=== PATIENT | female | born 1975 | race Caucasian/White ===

== ENCOUNTER 2019-06-04 14:16 | Emergency (ER) | payer BC, OTHER ==
[2019-06-04] MEDS ORDERED: ONDANSETRON HCL INJ/PF 4 MG/2 ML SDV IV ONE (15:01)
--- NOTE | 2019-06-04 15:07 | ER Document Report ---
ED General - General Chief Complaint: Nausea/Vomiting Stated Complaint: NAUSEA/VOMITING Time Seen by Provider: 06/04/19 14:26 Primary Care Provider: SHANDA BAEZ FNP [Primary Care Provider] - Follow up as needed TRAVEL OUTSIDE OF THE [place] IN LAST 30 DAYS: No - HPI Notes: Chief complaint: Vomiting, diarrhea dehydration and weakness HPI: Generally healthy 43-year-old female seen in urgent care approximately 2 weeks ago with cough and respiratory symptoms and diagnosed with a walking pneumonia at that time. She was treated with Levaquin. Patient had a COVID test at that time which was reported as negative. Respiratory symptoms have improved although during the entire course of her illness she is remained fatigued and has had some vague dull headache and myalgias. Over the last 1 week she has developed recurrent episodes of vomiting with worsening weakness and has been extremely chilled intermittently although she says she is not measured an elevated temperature at home. She has been seen at least twice in urgent care and has been given IV fluids. Vomiting persists. She is now developed some watery stools. She has had 2 stools today and also vomited twice today. She is not able to eat or drink well. She is thirsty. She denies any bilious emesis, hematemesis or coffee-ground emesis. She denies any melena or hematochezia. Her primary care provider mentioned the possibility of antibiotic associated colitis but apparently has not done a C. difficile toxin assay for her. They did send specimens for helical back to [facility] yesterday but these r esults remain pending at this time. She complains of some "soreness" mid epigastric area. She has no localized right lower quadrant pain. Patient has had no direct exposure to COVID-19 virus that she is aware of. She does however note that her is a caddy packer. He was tested within the last 2 weeks and also had a reported negative result. Patient has not traveled outside the area. She denies any known contact with other individuals with similar gastrointestinal symptoms. Past surgical procedures for the patient have included hysterectomy, cholecystectomy and exploratory laparotomy with lysis of adhesions. She still has her appendix. - Related Data Allergies/Adverse Reactions: No Known Allergies Allergy (Verified 06/04/19 14:26) Past Medical History - General Information source: Patient, [facility] Records - Social History Smoking Status: Never Smoker Chew tobacco use (# tins/day): No Frequency of alcohol use: Rare Drug Abuse: None Lives with: Family Family History: Reviewed & Not Pertinent Patient has homicidal ideation: No - Past Medical History Cardiac Medical History: Reports: Other - History of PSVT and takes a beta- quincy regularly. Pulmonary Medical History: Reports: Other - Recent treatment for pneumonia as per HPI Neurological Medical History: Reports: Hx Migraine Endocrine Medical History: Denies: Hx Diabetes Mellitus Type 2 GI Medical History: Denies: Hx Ulcer Psychiatric Medical History: Reports: Hx Anxiety, Hx Depression Past Surgical History: Reports: Hx Abdominal Surgery, Hx Cholecystectomy, Hx Hysterectomy Review of Systems - Review of Systems Notes: Constitutional: As per HPI. HENT: Negative for sore throat. Eyes: Negative for visual changes. Cardiovascular: Negative for chest pain. Respiratory: Negative for shortness of breath. Gastrointestinal: As per HPI. Genitourinary: Negative for dysuria. Musculoskeletal: Negative for back pain. Skin: Negative for rash. Neurological: Negative for headaches, focal weakness or numbness. 10 point ROS negative except as marked above and in HPI. Physical Exam - Vital signs Vitals: Temp 97.8 F 06/04/19 14:19 - Notes Notes: Remote Exam Using Telemedicine System for risk mitigation related to COVID-19 pandemic GENERAL: Well-developed well-nourished appearing in no acute distress. SKIN: Decreased turgor. No rashes. HEAD: Normocephalic atraumatic. EYES: Eyes appear mildly sunken. PERRL. EOMI. Conjunctivae and sclerae clear. NOSE: CLEAR. MOUTH: Tacky oral mucosa. Good dentition. No stridor or edema. No drooling. NECK: Full ROM. No visible masses or thyromegaly. No JVD. BACK: Symmetrical. CHEST: Respirations unlabored. Expands symmetrical. ABDOMEN: Non-distended. Nontender. GENITALIA: Deferred. EXTREMITIES: No edema. NEUROLOGICAL: GCS 15. Alert and oriented x3. Normal gait. Fluent speech. Cranial nerves II through XII intact. Motor and cerebellar normal. PSYCHIATRIC: Appropriate affect. Course - Re-evaluation Re-evalutation: 06/04/19 15:10 My most immediate concern would be dehydration and possible antibiotic associated colitis. We will give the patient some IV normal saline and some Zofran. We will try to collect stool specimen for C. difficile toxin assay. We will recheck a CBC and comprehensive metabolic profile. We will also get an influenza screen for the patient. 06/04/19 20:40 Patient was clinically dehydrated and felt much better after she received 2 L normal saline IV. We also gave her some Zofran and some fentanyl IV and she showed great symptomatic improvement. Her C. difficile testing was negative. We did get a CT abdomen and pelvis with oral and IV contrast and she has some th ickening of the colon consistent with a nonspecific colitis. I think she is stable for outpatient management and she will be referred back to her PMD. Findings and recommendations have been discussed and fully understood by the patient. - Vital Signs Vital signs: Temp Pulse Resp BP Pulse Ox 97.9 F 86 14 136/74 H 100 06/04/19 14:24 06/04/19 14:24 06/04/19 14:24 06/04/19 14:24 06/04/19 14:24 - Laboratory Result Diagrams: 06/04/19 15:15 06/04/19 15:15 Laboratory results interpreted by me: 06/04/19 15:15 Chloride 112 H Carbon Dioxide 16 L Discharge - Discharge Clinical Impression: Colitis Condition: Stable Disposition: HOME, SELF-CARE Additional Instructions: Colitis, Nonspecific Colitis is an inflammatory disease of the large intestine which affects the lining of the bowel. The cause is uncertain, though it is often caused by an infection. In some cases, the symptoms resolve and can return again in the future. Colitis is characterized by abdominal pain, often nausea and vomiting, and either diarrhea or difficulty with bowel movements. Sometimes blood will be present in the bowel movements. Fever is often present as well. Milder cases of colitis can be managed as an outpatient with medications for nausea and vomiting and pain, oral fluid therapy, and perhaps antibiotics, if a bacterial origin is suspected. Antidiarrhea medicine should usually be avoided in colitis. If you have increasing abdominal pain, repeated vomiting, fever, rectal bleeding, or worsening diarrhea, you should return for re-evaluation. Follow-up with your primary care physician next 3 to 5 days. Take prescribed medications as directed. Return here as needed for new or worsening symptoms: Pain that is worsening or unimproved Uncontrolled vomiting High fever or shaking chills Overall worsening Prescriptions: Ciprofloxacin HCl [Cipro 500 mg Tablet] 500 mg PO BID #20 tablet Prednisone [Deltasone 20 mg Tablet] 2 tab PO DAILY 5 Days tablet Metronidazole [Flagyl 500 mg Tablet] 500 mg PO Q6H #28 tablet Oxycodone HCl/Acetaminophen [Percocet 5-325 mg Tablet] 1 tab PO Q6H PRN 5 Days #15 tablet PRN Reason: Ondansetron [Zofran Odt 4 mg Tablet] 1 - 2 tab PO Q4H PRN #15 tab.rapdis PRN Reason: For Nausea/Vomiting Referrals: SHANDA BAEZ FNP [Primary Care Provider] - Follow up as needed
[2019-06-04] MEDS: NORMAL SALINE 1000 ML 1,000 ML IV PRN ×2 (15:25→17:03)
[2019-06-04 15:42] LABS: APPEARANCE,URINE CLEAR; BILIRUBIN,URINE NEGATIVE (NEGATIVE); COLOR,URINE YELLOW; GLUCOSE, URINE NEGATIVE (NEGATIVE); KETONES,URINE NEGATIVE (NEGATIVE); PROTEIN,URINE NEGATIVE (NEGATIVE); UROBILINOGEN,URINE NEGATIVE mg/dL (<2.0)
[2019-06-04 15:43] LABS: ABSOLUTE EOSINOPHILS # (AUTO) 0.1 10^3/uL (0.0-0.6); ABSOLUTE LYMPHOCYTES (AUTO) 2.5 10^3/uL (0.5-4.7); ABSOLUTE MONOCYTES (AUTO) 0.6 10^3/uL (0.1-1.4); ABSOLUTE NEUT (AUTO) 4.2 10^3/uL (1.7-8.2); BASOPHILS % (AUTO) 0.5 % (0-2); EOSINOPHILS % (AUTO) 1.1 % (0-6); HEMATOCRIT 37.8 % (36.0-47.0); HEMOGLOBIN 13.3 g/dL (12.0-15.5); LYMPHOCYTES % (AUTO) 33.6 % (13-45); MEAN CORPUSCULAR HEMOGLOBIN 30.4 pg (27.0-33.4); MEAN CORPUSCULAR HGB CONC 35.2 g/dL (32.0-36.0); MEAN CORPUSCULAR VOLUME 87 fl (80-97); MONOCYTES % (AUTO) 7.7 % (3-13); PLATELET COUNT 231 10^3/uL (150-450); RED BLOOD COUNT 4.37 10^6/uL (3.72-5.28); RED CELL DISTRIBUTION WIDTH 13.3 % (11.5-14.0); SEGMENTED NEUTROPHILS % (AUTO) 57.1 % (42-78); TOTAL CELLS COUNTED % (AUTO) 100 %; WHITE BLOOD COUNT 7.4 10^3/uL (4.0-10.5)
[2019-06-04 15:53] LABS: ALBUMIN 4.4 g/dL (3.5-5.0); ALKALINE PHOSPHATASE 72 U/L (38-126); ANION GAP 12 (5-19); ASPARTATE AMINO TRANSFERASE 23 U/L (14-36); BILIRUBIN,TOTAL 0.2 mg/dL (0.2-1.3); BLOOD UREA NITROGEN 14 mg/dL (7-20); CALCIUM 8.9 mg/dL (8.4-10.2); CARBON DIOXIDE 16 mmol/L (22-30); CHLORIDE 112 mmol/L (98-107); GLUCOSE 93 mg/dL (75-110); POTASSIUM 3.9 mmol/L (3.6-5.0); TOTAL PROTEIN 7.4 g/dL (6.3-8.2)
[2019-06-04 15:56] LABS: A TYPE INFLUENZA AG NEGATIVE (NEGATIVE); B INFLUENZA AG NEGATIVE (NEGATIVE)
[2019-06-04] MEDS ORDERED: MORPHINE SULFATE 10 MG/ML INJ IV ONE (16:45)
[2019-06-04] MEDS ORDERED: PROCHLORPERAZINE EDISYLATE INJ 10 MG/2 ML VIAL IV ONE (16:45)
[2019-06-04 19:24] LABS: C DIFFICILE GDH NEGATIVE (NEGATIVE)
--- NOTE | 2019-06-04 20:26 | RADIOLOGY REPORT (SQ) ---
EXAM DESCRIPTION: CT ABDOMEN PELVIS WITH IV CONTRAST COMPLETED DATE/TME: 06/04/2019 00:00 CLINICAL HISTORY: 43 years Female RLQ pain COMPARISON: 02/18/2015. TECHNIQUE: Contiguous axial images obtained through the abdomen and pelvis following IV contrast. Reformatted images obtained. This exam was performed according to our department optimization program which includes automated exposure control, adjustment of the mA and/or kv according to patient size and/or use of iterative reconstruction technique. FINDINGS: The liver appears unremarkable. Pancreas has a small ovoid area along the pancreatic tail which was present and appears unchanged when compared to 2016. This is likely a normal focus of glandular tissue. Spleen is within normal limits of size. There is a complex peripherally calcified cystic lesion in the anterior aspect of the spleen which appears unchanged when compared to previous exams. No adrenal masses. The kidneys appear unremarkable. No hydronephrosis. The gallbladder is absent. No aneurysmal dilatation of the aorta. No bowel obstruction. The appendix is unremarkable. Findings suggesting mild wall thickening in the transverse, descending and sigmoid colon consistent with developing colitis. IMPRESSION: Mild wall thickening in the transverse, descending and sigmoid colon consistent with mild colitis. Changes May BE infectious or inflammatory Stable calcified cystic lesion in the spleen Unremarkable appendix
[2019-06-04] MEDS ORDERED: HYDROCODONE/ACETAMINOPHEN 5-325 MG (6 TAB/ER DISP) PO PRN (20:39)
[2019-06-04] MEDS ORDERED: METHYLPREDNISOLONE INJ 125 MG/2 ML SDV IV ONE (20:39)
[2019-06-04 21:13] VITALS: BP 129/80
== END 2019-06-04 21:12 | disposition home or self-care (01) ==
LOC: ER 14:16
DX: K52.9 Noninfective gastroenteritis and colitis, unspecified (principal); E86.0 Dehydration; R53.83 Other fatigue; R51 Headache; R11.2 Nausea with vomiting, unspecified; M79.10 Myalgia, unspecified site; R53.1 Weakness; Z87.01 Personal history of pneumonia (recurrent); Z20.828 Contact with and (suspected) exposure to other viral communicable diseases
CPT/HCPCS: 99284; 96361; 96374; 96375; 36415; 87045; 87205; 83690; 83735; 85025; 87635; 80053; 81001; 87804; 87324; 87449; 74177; J2930; J2270; J0780; J2405; J7030

== ENCOUNTER 2019-11-30 18:49 | Emergency (ER) | payer OTHER ==
[2019-11-30 19:02] VITALS: BP 146/76
--- NOTE | 2019-11-30 19:34 | ER Document Report ---
Doctor's Note Notes: 11/30/19 19:34 She was not available for me to examine. I called her name several times and she did not answer. I will call her again. Call patient again she is still not present. I did call the first time at 1930 I called her the second time at 1941. She still does not answer. I have not examined her she has left without being seen.
== END 2019-11-30 19:49 | disposition left against medical advice (07) ==
LOC: ER 18:49
DX: Z53.21 Procedure and treatment not carried out due to patient leaving prior to being seen by health care provider (principal)